=== PATIENT | female | born 2000 | race Caucasian/White ===

== ENCOUNTER 2023-09-09 03:24 | Emergency (ER) | payer OTHER ==
[~2023-09-09] VITALS: Ht 157.5 cm; Wt 62.6 kg
[2023-09-09] MEDS ORDERED: KETOROLAC TROMETHAMINE 60 MG VIAL IM STA (04:41)
[2023-09-09] MEDS ORDERED: DEXAMETHASONE SODIUM PHOSPHATE 4 MG/ML VIAL IM STA (04:41)
[2023-09-09 05:04] LABS: HEMATOCRIT 32.4 % (36.0-45.00); HEMOGLOBIN 11.3 g/dL (12.0-15.00); MEAN CELL VOLUME 90.9 fL (80.00-100.00); MEAN CORPUSCULAR HEMOGLOBIN 31.6 pg (27.00-32.0); MEAN CORPUSCULAR HGB CONC 34.8 g/dl (32.0-36.0); PLATELET COUNT 259 K/uL (150-450); RED BLOOD COUNT 3.56 M/uL (4.00-6.00); RED CELL DISTRIBUTION WIDTH 12.9 % (11.5-14.5)
[2023-09-09 05:05] LABS: PH,URINE 5.5 (5.0-8.0); URINE APPEARANCE Clear; URINE BILIRRUBIN Negative (NEGATIVE); URINE BLOOD Negative; URINE COLOR Yellow; URINE GLUCOSE Negative (NEGATIVE); URINE LEUKOCYTE Negative; URINE NITRATE Negative; URINE PROTEIN Negative (NEGATIVE)
[2023-09-09 05:09] LABS: URINE BACTERIA 890.6 uL (0.0-1933); URINE EPITHELIAL CELLS 16.2 uL (0.0-38.8); URINE RBC 6.7 uL (0.0-20.8); URINE WBC 3.5 uL (0.0-23.2)
== END 2023-09-09 06:52 | disposition home or self-care (01) ==
LOC: ER 03:24
DX: N94.0 Mittelschmerz (principal)